=== PATIENT | female | born 1995 | race Two or more races ===

== ENCOUNTER 2021-01-13 13:16 | Emergency (ER) | payer MEDICAID ==
[~2021-01-13] VITALS: Ht 162.6 cm; Wt 61.2 kg
[2021-01-13 15:11] VITALS: BP 106/63
[2021-01-13] MEDS ORDERED: IBUPROFEN 800 MG TAB PO ONE (15:45)
== END 2021-01-13 16:22 | disposition home or self-care (01) ==
LOC: ER 13:16
DX: S62.326A Displaced fracture of shaft of fifth metacarpal bone, right hand, initial encounter for closed fracture (principal); W22.01XA Walked into wall, initial encounter; Y93.89 Activity, other specified; Y92.89 Other specified places as the place of occurrence of the external cause; Y99.8 Other external cause status
CPT/HCPCS: 29125; 73120

== ENCOUNTER 2022-11-12 22:17 | Emergency (ER) | payer MEDICAID ==
[~2022-11-12] VITALS: Ht 162.6 cm; Wt 63.6 kg
[2022-11-13 00:39] VITALS: BP 95/68
[2022-11-13] MEDS ORDERED: PRED20TA2 PO (01:25)
[2022-11-13] MEDS ORDERED: ALBUAER3 IN (01:25)
[2022-11-13] MEDS ORDERED: KETOROLAC TROMETH 30 MG/ML 1ML VIAL IM ONE (01:30)
== END 2022-11-13 02:40 | disposition home or self-care (01) ==
LOC: ER 22:17
DX: J40 Bronchitis, not specified as acute or chronic (principal); M94.0 Chondrocostal junction syndrome [Tietze]
CPT/HCPCS: 71046; 93005; 96372; 99283; J1885

== ENCOUNTER 2024-04-12 06:55 | Inpatient (IN) | payer MEDICAID ==
[2024-04-10 13:59] LABS: Urine Bacteria FEW /hpf (None Seen); Urine Blood Negative /uL (Negative); Urine Color Dark-Yellow (Yellow); Urine Protein, UAD Negative (Negative); Urine Specific Gravity 1.022 (1.001-1.035); Urine Urobilinogen 4 mg/dL (Negative); Urine WBC 4 /hpf (0 - 5); Urine pH 5.5 (5.0-9.0)
[2024-04-10 14:00] LABS: Basophils # (auto) 0 10 ^3/uL (0-0.2); Basophils % (auto) 0.8 % (0.0-2.0); Eosinophils # (auto) 0.1 10 ^3/uL (0-0.8); Eosinophils % (auto) 1.5 % (0.0-7.0); Hematocrit 43.8 % (36.0-46.0); Hemoglobin 15.1 g/dL (12.2-16.2); Lymphocytes # (auto) 1.2 10 ^3/uL (0.4-5.4); Lymphocytes % (auto) 18.4 % (10.0-50.0); Mean Corpuscular Hemoglobin 31.2 pg (28.0-32.0); Mean Corpuscular Hgb Conc. 34.4 g/dL (32.0-36.0); Mean Corpuscular Volume 90.7 fL (80.0-100.0); Monocytes # (auto) 0.6 10 ^3/uL (0-1.3); Monocytes % (auto) 9.3 % (0.0-12.0); Neutrophils # (auto) 4.4 10 ^3/uL (1.6-8.6); Platelet Count (auto) 235 10^3/uL (140-450); Red Blood Cells 4.83 10^6/uL (4.0-5.20); White Blood Cell 6.3 10^3/uL (4.4-10.8)
[2024-04-10 14:06] LABS: Urine Clarity Cloudy (Clear)
[2024-04-10 14:17] LABS: INR 1.03 (0.9-1.15); Partial Thromboplastin Time 27.4 SEC (24.5-34.5); Prothrombin Time 10.9 sec (9.3-11.8)
[2024-04-10 14:32] LABS: Alanine Aminotransferase 433 U/L (7-40); Albumin 4.6 g/dL (3.2-4.8); Alkaline Phosphatase 133 U/L (46-116); Anion Gap 4 (5-15); Aspartate Aminotransferase 314 U/L (13-40); Blood Urea Nitrogen 7 mg/dL (9-23); Calcium 9.6 mg/dL (8.7-10.4); Carbon Dioxide 29 mmol/L (20-30); Chloride 106 mmol/L (98-107); Glucose 86 mg/dL (74-106); Potassium 3.6 mmol/L (3.5-5.1); Sodium 139 mmol/L (136-145)
[2024-04-10 14:33] LABS: Bilirubin, Total 4.3 mg/dL (0.2-1.0); Total Protein 7.2 g/dL (5.7-8.2)
[~2024-04-12] VITALS: Ht 162.6 cm; Wt 68.4 kg
[2024-04-12] VITALS (8 sets, daily range): BP systolic 94–122; BP diastolic 53–69; PULSE 80–109; RESP 12–20; TEMP 97.8–98.9; O2SAT 95–98
[~2024-04-12 06:55] MED LIST: ALBUAER3 IN
[2024-04-12] MEDS: BUPIVACAINE 0.25% INJ 50ML VIAL ONE (07:10)
[2024-04-12] MEDS: LIDOCAINE 1%-Mpf/Epinephrine 1:200,000 30ml VIAL ONE (07:10)
[2024-04-12] MEDS ORDERED: HYDROmorphone HCL 2 MG/ML VL/or syr ONE (07:20)
[2024-04-12] MEDS ORDERED: MIDAZOLAM HCL 2MG/2ML 2ml VIAL (1mg/ml) ONE (07:20)
[2024-04-12] MEDS: ceFAZolin 2 GM/D5W50ml 50 ML IV ONE (07:20)
[2024-04-12] MEDS ORDERED: fentaNYL CITRATE 100 MCG/2 ML VL ONE (07:20)
[2024-04-12] MEDS ORDERED: KETAMINE 50mg/ML 1ml syringe ONE (07:20)
[2024-04-12] MEDS ORDERED: KETOROLAC TROMETH 30 MG/ML 1ML VIAL ONE (07:21)
[2024-04-12] MEDS ORDERED: LIDOCAINE 2% (LOCAL ANESTH.) PF 5ml SDV ONE (07:21)
[2024-04-12] MEDS ORDERED: DexAMETHasone SOD PHOS 10MG/1ML VIAL INJ ONE (07:21)
[2024-04-12] MEDS ORDERED: GLYCOPYRROLATE 0.2 MG/ML 1ML VIAL ONE (07:21)
[2024-04-12] MEDS ORDERED: PROPOFOL 10 MG/ML 20 ML IV ONE (07:21)
[2024-04-12] MEDS ORDERED: ePHEDrine SULFATE 50 MG/ML AMP ONE (07:21)
[2024-04-12] MEDS ORDERED: ONDANSETRON HCL 4 MG/2 ML VIAL ONE (07:21)
[2024-04-12] MEDS: FAMOTIDINE (10MG/ML) 2ML VL IV ONE (07:33)
[2024-04-12] MEDS: POVIDONE IODINE 10 % TOPICAL OINT 30GM TOP ONE (08:07)
[2024-04-12] MEDS ORDERED: HYDROmorphone HCL 2 MG/ML VL/or syr IV PRN ×2 (09:00→09:15)
[2024-04-12] MEDS ORDERED: ALBUTEROL SULF 2.5 MG/0.5ML(0.5%) NEB SOLN NEB PRN (09:15)
[2024-04-12] MEDS ORDERED: NITROGLYCERIN 0.4 MG SL TAB SL PRN (09:45)
[2024-04-12] MEDS ORDERED: MORPHINE SULFATE INJ 2 MG/ml SYRG IV PRN (09:45)
[2024-04-12] MEDS: PANTOPRAZOLE 40 MG/10 ML VIAL INJ IV SCH (10:20)
[2024-04-12] MEDS: D5W/SOD CHL 0.45%/KCL 20MEQ 1,000 ML IV SCH (10:27)
[2024-04-12] MEDS ORDERED: SUCCINYLCHOLINE CHLORIDE 20 MG/ML 10ML VIAL IV ONE (12:43)
[2024-04-12] MEDS: ONDANSETRON HCL 4 MG/2 ML VIAL IV ONE (12:51)
[2024-04-12] MEDS: metroNIDAZOLE 500MG/100ML 100 ML IV SCH (14:55)
[2024-04-12] MEDS: ceFAZolin 1GM/50ML 50 ML IV SCH (15:00)
[2024-04-13] VITALS (8 sets, daily range): BP systolic 89–105; BP diastolic 51–61; PULSE 74–111; RESP 16–20; TEMP 98–99.4; O2SAT 96–98
[2024-04-13] MEDS: HYDROmorphone HCL 2 MG/ML VL/or syr IV PRN (03:23)
[2024-04-13] MEDS: ONDANSETRON HCL 4 MG/2 ML VIAL IV PRN (06:16)
[2024-04-13 06:53] LABS: Alanine Aminotransferase 158 U/L (7-40); Alkaline Phosphatase 98 U/L (46-116); Anion Gap 5 (5-15); Aspartate Aminotransferase 53 U/L (13-40); BUN/Creatinine Ratio 6.4 (10.0-20.0); Bilirubin, Total 0.9 mg/dL (0.2-1.0); Blood Urea Nitrogen 5 mg/dL (9-23); Calcium 9.2 mg/dL (8.7-10.4); Carbon Dioxide 28 mmol/L (20-30); Chloride 107 mmol/L (98-107); Glucose 100 mg/dL (74-106); Potassium 3.7 mmol/L (3.5-5.1); Sodium 140 mmol/L (136-145); Total Protein 6.4 g/dL (5.7-8.2)
[2024-04-13 07:00] LABS: Basophils # (auto) 0 10 ^3/uL (0-0.2); Basophils % (auto) 0.1 % (0.0-2.0); Eosinophils # (auto) 0 10 ^3/uL (0-0.8); Hematocrit 39.5 % (36.0-46.0); Hemoglobin 13.7 g/dL (12.2-16.2); Lymphocytes # (auto) 1.5 10 ^3/uL (0.4-5.4); Lymphocytes % (auto) 12.2 % (10.0-50.0); Mean Corpuscular Hemoglobin 31.6 pg (28.0-32.0); Mean Corpuscular Hgb Conc. 34.7 g/dL (32.0-36.0); Monocytes % (auto) 8.4 % (0.0-12.0); Neutrophils # (auto) 9.6 10 ^3/uL (1.6-8.6); Neutrophils % (auto) 79.3 % (37.0-80.0); Platelet Count (auto) 212 10^3/uL (140-450); Red Blood Cells 4.35 10^6/uL (4.0-5.20); Red Cell Distribution Width 13.1 % (11.8-14.3); White Blood Cell 12.1 10^3/uL (4.4-10.8)
[2024-04-13] MEDS: traMADol HCL 50 MG TAB PO PRN (09:39)
[2024-04-13] MEDS ORDERED: DOCU-94 PO (10:26)
[2024-04-13] MEDS ORDERED: TRAM-626 PO (10:26)
[2024-04-13] MEDS ORDERED: CEPH500C PO (10:26)
== END 2024-04-13 16:00 | disposition home or self-care (01) | DRG 263 ==
LOC: SUR 06:55 → OVERFLOW 09:36 → CENTRAL 15:09
PROVIDERS: ADMIT Internal Medicine; ATTEND Internal Medicine
PROC: 0FT44ZZ Resection of Gallbladder, Percutaneous Endoscopic Approach (ICD-10-PCS; principal; 2024-04-12 07:52)
DX: K80.10 Calculus of gallbladder with chronic cholecystitis without obstruction (principal); K59.00 Constipation, unspecified; R74.01 Elevation of levels of liver transaminase levels
CPT/HCPCS: 36415; 80053; 81001; 84702; 85025; 85610; 85730; 86850; 86900; 86901; G0378; J0330; J1100; J1885; J2001; J2250; J2405; J2470; J2704; J3490